=== PATIENT | female | born 2005 | race Two or more races ===

== ENCOUNTER 2025-07-26 12:25 | Emergency (ER) | payer OTHER, SELFPAY ==
[2025-07-26 12:27] VITALS: BP 130/91
--- NOTE | 2025-07-26 13:58 | ED.GENMED ---
History of Present Illness
General
Chief Complaint: Breathing Problem
Source: patient
Exam Limitations: none
Time Seen by Provider: 07/26/25 13:57
History of Present Illness
History of Present Illness:
20yoF with no significant past medical history presenting for evaluation of shortness of breath. Patient has been having intermittent dyspnea and rib pain over the past 1.5 weeks. Pain initially started on left lower rib cage but is now also
present on the right. She describes this as a burning pain that worsens with deep breathing. She also reports a cough, intermittent dizziness, and feeling more fatigued than usual. No fevers, leg swelling, calf pain. She vapes nicotine and uses
a control patch.
Phy Exam
General Physical Exam
General Presentation: well appearing and no apparent distress
General Skin: warm and dry
General Habitus: normal
General Mental: alert
ENT Exam
ENT Exam: normocephalic
Cardiovascular Exam
Cardiovascular Exam: regular rate/rhythm, no edema and no murmur
Pulmonary Exam
Pulmonary Exam: lungs clear, no respiratory distress, no rales, no crackles, no rhonchi and no wheezing
Neurological Exam
Neurological Exam: alert
Dennis Coma Scale
Eye Opening: Spontaneous
Verbal Response: Oriented
Motor Response: Obeys Commands
GCS Total Score: 15
Skin Exam
Skin Exam: normal color and warm/dry
Psychiatric Exam
Psychiatric Exam: normal mood/affect
Course
Orders/Labs/Results
Orders:
Orders
07/26/25
Electrocardiogram (*1) Stat
Comment: DONE
07/26/25 14:04
Cardiac Monitoring- Treatment ONCE
Test Result ONCE
CR Chest - 2 Views Urgent
Comment:
Reason For Exam: CP
07/26/25 14:31
Complete Blood Count/With Diff Urgent
Comprehensive Metabolic Panel Urgent
D-Dimer Urgent
HCG, Serum Qualitative Screen Urgent
Troponin I Urgent
Abnormal Lab Results
07/26/25
14:31
Absolute Neuts (auto) 7.2 H 10^3/uL
(1.4-6.5)
Absolute Monos (auto) 0.8 H 10^3/uL
(0.1-0.6)
07/26/25 14:31
07/26/25 14:31
Vital Signs
Initial and Last Documented VS:
Initial Vital Signs
Temp Pulse Resp BP Pulse Ox
97.7 F 98 16 130/91 98
07/26/25 12:27 07/26/25 12:27 07/26/25 12:27 07/26/25 12:27 07/26/25 12:27
Last Documented Vital Signs
Temp Pulse Resp BP Pulse Ox
97.7 F 98 16 130/91 98
07/26/25 12:27 07/26/25 12:27 07/26/25 12:27 07/26/25 12:27 07/26/25 15:08
MDM/Problems Addressed
Differential Diagnosis Includes:
20yoF here with chest burning and SOB x 1.5 weeks. Vapes nicotine. VSS. Oxygen saturation 100% during exam and lungs CTA. Differential diagnosis includes but is not limited to: bronchospasm, vaping lung injury, pneumonia, costochondritis, PE, less
likely ACS given age/lack of risk factors
Initial ED plan: Triage EKG shows NSR without ischemic changes. Will check cardiac labs, D-dimer, and CXR.
*Pulse Oximetry
SaO2: 98
Oxygen Mode of Delivery: Room air
Patient hypoxic: no (98%)
*EKG
Interpreted by ED Provider?: Yes
EKG Intrepretation Date: 07/26/25
Heart Rate: 95
Rate: normal
Rhythm: sinus
Harold: normal axis
Interval: normal interval
QRS Pattern: normal QRS
Ischemia: no ischemia
*Critical Care Note
Total Time (30-74mins, 75-104mins- exclusive of procedures): Not Applicable
Update Note
Update Note:
Labs overall unremarkable. D-dimer normal making PE very unlikely. Troponin within normal limits. Chest x-ray is negative for acute findings. Unclear etiology of symptoms, possibly related to vaping. She was advised to stop smoking and
follow-up with her family doctor. ED return precautions reviewed and she was discharged in stable condition.
ED Attending Note
-
Portions of this chart may have been created with voice recognition software.� Occasional wrong word or��sound alike� substitutions may have occurred due to the inherent limitations of voice recognition software.
Discharge Plan
Departure
Patient Disposition: Home (Routine Discharge)
Date of Disposition: 07/26/25
Time of Disposition: 15:25
Patient with high blood pressure during this ER visit?: No
Discharge Problem:
Shortness of breath
Instructions: Shortness of Breath (Dyspnea) (DC)
Stand Alone Forms: Return to Work
Activity Restrictions/Additional Instructions:
Stop vaping/smoking.
Please follow-up with your family doctor. Return to the ER with any new or worsening symptoms.
Interventions
Interventions:
*Risk Screen - Suicide Last Done: 07/26/25 12:27
*General Assessment Last Done: 07/26/25 15:06
*Neglect/Abuse Screening Last Done: 07/26/25 12:27
*ED- Fall Risk Assessment Last Done: 07/26/25 15:06
*ED COVID-19 Vaccine History Last Done: 07/26/25 15:06
*Nursing Disposition Last Done: 07/26/25 15:46
ED- Cardiac Assessment Last Done: 07/26/25 15:07
ED- Pulmonary Assessment Last Done: 07/26/25 15:08
Discharge Date and Time
Discharge Date/Time: 07/26/25 15:46
Print Language: BELARUSIAN
[2025-07-26 14:46] LABS: Hematocrit 38.1 % (37.0-47.0); Hemoglobin 12.9 g/dL (12.0-16.0); Mean Corp Hgb Conc. 33.9 g/dL (33.0-37.0); Mean Corpuscular Volume 86.4 fL (81.0-99.0); Nucleated Red Blood Cells % 0 %; Platelet Count 282 10^3/uL (130-400); Red Cell Dist. Width 12.5 % (11.5-14.5)
[2025-07-26 14:53] LABS: D-Dimer 0.30 ug/mlFEU (0.00-0.50)
[2025-07-26 14:58] LABS: HCG, Serum Qualitative Screen Negative
[2025-07-26 15:02] LABS: ALT (SGPT) < 10 U/L (0-35); AST (SGOT) 22 U/L (14-36); Albumin 4.4 g/dl (3.5-5.0); Alkaline Phosphatase 68 U/L (38-126); Blood Urea Nitrogen 8 mg/dl (7-17); Calcium 9.8 mg/dl (8.4-10.2); Carbon Dioxide 22 mmol/L (22-30); Chloride 106 mmol/L (98-107); Glucose 73 mg/dl (70-99); Potassium 4.3 mmol/L (3.5-5.1); Sodium 136 mmol/L (135-145); Total Protein 8.0 g/dl (6.3-8.2); eGFR > 60.00
[2025-07-26 15:19] LABS: Troponin I < 0.012 ng/ml
== END 2025-07-26 15:46 | disposition home or self-care (01) ==
LOC: EMR 12:25
PROVIDERS: Physician Assistant; EMERGENCY PHYSICIAN Emergency Medicine; FAMILY PHYSICIAN Pediatrics
DX: R06.02 Shortness of breath (principal); F17.290 Nicotine dependence, other tobacco product, uncomplicated
CPT/HCPCS: 99284; 71046; 80053; 84484; 84703; 85025; 85379; 93005

== ENCOUNTER 2025-10-28 18:45 | Emergency (ER) | payer OTHER, SELFPAY ==
[2025-10-28 18:53] VITALS: BP 137/89
--- NOTE | 2025-10-28 20:18 | ED.GENMED ---
History of Present Illness
General
Chief Complaint: Crisis Evaluation
Source: patient
Exam Limitations: none
Time Seen by Provider: 10/28/25 19:59
Nursing documentation reviewed up to this point in time: agreed with
History of Present Illness
History of Present Illness:
Patient to the emergency department for crisis evaluation. She reports increasing anxiety, hearing voices in her head. States she has done therapy in the past through her judaism. She is currently not prescribed any medication. She denies any
SI/HI.
Past History
Past History
ED Past Medical History: Psychiatric (Anxiety)
Review of Systems
Review of Systems
Allergies reviewed?: Yes
All Other Systems: ROS reviewed and negative except as documented in HPI and ROS
Constitutional: Reports no symptoms
EENT: Reports no symptoms
Respiratory: Reports no symptoms
Cardiac: Reports no symptoms
ABD/GI: Reports no symptoms
: Reports no symptoms
Musculoskeletal: Reports no symptoms
Skin: Reports no symptoms
Neurological: Reports no symptoms
Psychiatric: Reports anxiety
Phy Exam
General Physical Exam
General Presentation: well appearing and no apparent distress
General age: appears stated age
General Skin: warm and dry
General Habitus: normal
General Mental: alert
Cardiovascular Exam
Cardiovascular Exam: regular rate/rhythm and no edema
Pulmonary Exam
Pulmonary Exam: lungs clear and no respiratory distress
Musculoskeletal Exam
Musculoskeletal Exam: full ROM
Skin Exam
Skin Exam: normal color, warm/dry and no rash
Psychiatric Exam
Psychiatric Exam: normal mood/affect
Course
Orders/Labs/Results
Orders:
Orders
10/28/25 19:04
Crisis Consult Urgent
Reason for Consult: SI, HEARING VOICES.
10/28/25 19:04
10/28/25 19:04
Vital Signs
Initial and Last Documented VS:
Initial Vital Signs
Pulse Resp BP Pulse Ox
85 20 137/89 99
10/28/25 18:53 10/28/25 18:53 10/28/25 18:53 10/28/25 18:53
Last Documented Vital Signs
Pulse Resp BP Pulse Ox
85 20 137/89 99
10/28/25 18:53 10/28/25 18:53 10/28/25 18:53 10/28/25 18:53
*Pulse Oximetry
SaO2: 99
Oxygen Mode of Delivery: Room air
Patient hypoxic: no
*Critical Care Note
Total Time (30-74mins, 75-104mins- exclusive of procedures): Not Applicable
Update Note
Update Note:
Patient to the emergency department for crisis evaluation. She reports increasing anxiety, increasing voices in her head. She was evaluated by crisis. Crisis does not feel that she requires inpatient treatment at this time. She was provided with
referral for outpatient services. Patient states she will call in the a.m. to schedule an appointment. She continues to deny SI/HI. Will discharge home. She was given instructions on signs and symptoms to return to the emergency department and
she is agreeable with this plan.
ED Attending Note
-
Portions of this chart may have been created with voice recognition software.� Occasional wrong word or��sound alike� substitutions may have occurred due to the inherent limitations of voice recognition software.
Discharge Plan
Departure
Patient Disposition: Home (Routine Discharge)
Date of Disposition: 10/28/25
Time of Disposition: 20:17
Patient with high blood pressure during this ER visit?: No
Condition: Good
Covid-19: Not Applicable
Discharge Problem:
Anxiety
Instructions: Anxiety, Adult (DC)
Referrals:
UNKNOWN - PT DOES,NOT KNOW [Family Provider]
Activity Restrictions/Additional Instructions:
Follow-up with therapist as recommended by crisis. Return to the emergency department immediately for any changes in/worsening of your symptoms.
Interventions
Interventions:
*Risk Screen - Suicide Last Done: 10/28/25 18:55
*General Assessment Last Done: 10/28/25 18:53
Discharge Date and Time
Print Language: ARMENIAN
--- NOTE | 2025-10-28 20:37 | EDRN ---
Crisis in room with patient
[2025-10-28 20:41] VITALS: BP 130/75
== END 2025-10-28 20:47 | disposition home or self-care (01) ==
LOC: EMR 18:45
PROVIDERS: EMERGENCY PHYSICIAN Student in an Organized Health Care Education/Training Program
DX: F41.9 Anxiety disorder, unspecified (principal)
CPT/HCPCS: 99283